=== PATIENT | male | born 1990 | race Caucasian/White ===

== ENCOUNTER 2019-02-25 11:37 | Emergency (ER) | payer SELFPAY ==
[~2019-02-25] VITALS: Ht 170.2 cm; Wt 86.0 kg
[2019-02-25 11:52] VITALS: BP 145/87
[2019-02-25] MEDS ORDERED: KETOROLAC 60MG/2ML VIAL IM ONE (13:00)
== END 2019-02-25 13:12 | disposition home or self-care (01) ==
LOC: ER 11:57
DX: M54.5 Low back pain (principal); M25.512 Pain in left shoulder; V49.88XA Car occupant (driver) (passenger) injured in other specified transport accidents, initial encounter; Y93.89 Activity, other specified; Y92.89 Other specified places as the place of occurrence of the external cause; Y99.8 Other external cause status
CPT/HCPCS: 96372; 99283; J1885